=== PATIENT | female | born 1975 | race African-American/Black ===

== ENCOUNTER 2022-11-02 18:26 | Outpatient (CLI) | payer MEDICAID, SELFPAY | END 2022-11-02 18:27 | disposition home or self-care (01) | LOC: AMB 11-03 18:45 | PROVIDERS: Visit Provider Family Medicine | DX: F29 Unspecified psychosis not due to a substance or known physiological condition (principal); R41.82 Altered mental status, unspecified | CPT/HCPCS: A0425; A0429 ==

== ENCOUNTER 2022-11-02 18:48 | Emergency (ER) | payer MEDICAID, SELFPAY ==
--- NOTE | 2022-11-02 18:50 | ED.NURSE ---
Pt present needing [employer] hourly sign language interpreter. Attempted to request [employer] hourly sign language interpreter via ipad, per their equalizer operator no N[employer] interpreters currently available. Logistics Manager stated they will call back within 15 minutes for an update on availability of N[employer] interpreters.
[2022-11-02 18:57] VITALS: BP 184/105; PULSE 113; RESP 18; TEMP 36.7; O2SAT 93
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
--- NOTE | 2022-11-02 19:19 | ED.NURSE ---
[facility] sales and support center agent called back on the phone. Equipment Coordinator on speaker phone in room. Equipment Coordinator states he is not able to hear or understand pt. Communications Technician requested sales and support center agent tell pt that her son was coming to pick her up from the hospital in the next hour or so. Equipment Coordinator did say something to pt in [facility], which pt seemed to acknowledge. Pt then said Thank you in [place]ali.
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
--- NOTE | 2022-11-02 20:12 | ED.NURSE ---
DC instructions called to pt's son, pt's son verbalized understanding.
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
== END 2022-11-02 20:17 | disposition home or self-care (01) ==
PROVIDERS: Emergency Provider Family Medicine
DX: F20.9 Schizophrenia, unspecified (principal)
CPT/HCPCS: 99283